=== PATIENT | female | born 1935 | race Caucasian/White ===

== ENCOUNTER → 2017-01-06 | Outpatient (CLI) | payer OTHER | LOC: BHFA 16:15 | PROVIDERS: ATTEND Internal Medicine Interventional Cardiology | DX: Z01.810 Encounter for preprocedural cardiovascular examination (principal); I25.10 Atherosclerotic heart disease of native coronary artery without angina pectoris ==

== ENCOUNTER 2017-03-26 07:15 | Inpatient (IN) | payer OTHER ==
[2017-03-26] MEDS ORDERED: VANCOMYCIN 1 GM VIAL ONE (09:16)
[2017-03-26] MEDS ORDERED: TRANEXAMIC ACID 3,000 MG/50 ML BAG IRR ONE (09:16)
[2017-03-26] MEDS ORDERED: TRANEXAMIC ACID 3,000 MG in NS 50 ML IRR ONE (12:00)
[2017-03-26] MEDS ORDERED: ROPIVACAINE 0.2% 80 MG, EPINEPHrine 0.2 MG, KETOROLAC TROMETHAMINE 30 MG in SYRINGE 0 ML IU ONE (12:00)
--- NOTE | 2017-03-26 12:23 | PDHPUP ---
History & Physical Update H&P update statement: This history and physical update is based on an assessment of the patient which was completed after admission or registration (within 24 hours), but prior to the surgery/procedure. H&P update: H&P reviewed & patient examined, no change in patient's condition since H&P completed
[2017-03-26] MEDS ORDERED: ACETAMINOPHEN 325 MG TAB PO ONE (13:11)
[2017-03-26] MEDS ORDERED: ceFAZolin 2 GM/SWFI 2 GM/20 ML SYR IVP ONE (13:11)
[2017-03-26] MEDS ORDERED: DEXAMETHASONE 4 MG/ML VIAL IVP ONE (13:11)
[2017-03-26] MEDS ORDERED: FAMOTIDINE 20 MG TAB PO ONE (13:11)
[2017-03-26 13:32] LABS: INR 1.07 (0.83-1.16); PROTIME(PATIENT) 14.1 SEC (12.0-15.0)
[2017-03-26] MEDS ORDERED: LR 1,000 ML IV ONE (13:52)
[2017-03-26] MEDS ORDERED: LIDOCAINE 1% 2 ML INJ ID PRN (13:52)
[2017-03-26] MEDS ORDERED: MIDAZOLAM 2 MG/2 ML VIAL ONE (14:38)
--- NOTE | 2017-03-26 14:39 | PDANEPAE ---
ANE History of Present Illness R knee oa ANE Past Medical History - Cardiovascular History Hx Hypertension: Yes Hx Arrhythmias: Yes Hx Chest Pain: No Hx Coronary Artery / Peripheral Vascular Disease: No Hx CHF / Valvular Disease: Yes - Pulmonary History Hx COPD: No Hx Asthma/Reactive Airway Disease: No Hx Recent Upper Respiratory Infection: No Hx Oxygen in Use at Home: No Hx Sleep Apnea: Yes Sleep Apnea Screening Result - Last Documented: Positive - Neurologic History Hx Cerebrovascular Accident: No Hx Seizures: No Hx Dementia: No - Endocrine History Hx Diabetes: Yes Endocrine History Comment: CONTROL BY WEIGHT LOSS AND DIET - Renal History Hx Renal Disorders: No - Liver History Hx Hepatic Disorders: No - Neurological & Psychiatric Hx Hx Neurological and Psychiatric Disorders: Yes Neurological / Psychiatric History Comment: 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 - Cancer History Hx Cancer: No - Congenital Disorder History Hx Congenital Disorders: No - GI History Hx Gastrointestinal Disorders: No - Other Health History Other Health History: BRUISES EASILY - Chronic Pain History Chronic Pain: Yes (R shoulder) - Surgical History Prior Surgeries: NONE ANE Review of Systems Review of Systems: - Exercise capacity METS (RN): 4 METS ANE Patient History - Allergies Allergies/Adverse Reactions: Penicillins Allergy (Intermediate, Verified 03/26/17 14:01) Rash - Home Medications Home Medications: RX: Aspirin [Aspirin 81mg (*)] 81 mg PO DAILY 06/24/11 [Last Taken 03/19/17] RX: C/E/Zn/Cu/OM3/DHA/EPA/LUT/ZEAX [Preservision Areds 2 Softgel] 1 each PO BIDMEAL 06/24/11 [Last Taken 03/19/17] RX: Furosemide [Lasix 40 MG (*)] 40 mg PO BIDMEAL@06/24/11 [Last Taken 09/04 15:00] RX: Hydrocodone/APAP 5/325 [[place] 5/325 (*)] 1 - 2 tab PO Q4PRN PRN 06/24/11 [ Last Taken 03/24/17] RX: Metoprolol Succinate Xr [Toprol Xl 50 mg (*)] 50 mg PO DAILY 06/24/11 [Last Taken 03/26/17 08:00] Acetaminophen [Tylenol 325mg (*)] 325 mg PO DAILY PRN 03/04/17 [Last Taken 03/12] Atorvastatin Calcium [Lipitor 40 mg (*)] 40 mg PO DAILY 03/04/17 [Last Taken 10/05 08:00] Cholecalciferol Vit D3 [Vitamin D3 (*)] 1,000 units PO DAILY@12 03/04/17 [Last Taken 03/19/17] Levothyroxine [Synthroid 25 mcg (*)] 25 mcg PO DAILY06 03/04/17 [Last Taken 10/05 07:00] Potassium Cl [Klor-Con] 10 meq PO BIDMEAL 03/04/17 [Last Taken 03/25/17 18:00] RX: Herbals/Supplements -Info Only 1 ea PO DAILY 03/04/17 [Last Taken 03/19/17] Spironolactone [Aldactone 25 MG (*)] 25 mg PO DAILY 03/04/17 [Last Taken 08:00] Valsartan [Diovan (*)] 80 mg PO DAILY 03/04/17 [Last Taken 03/26/17 08:00] Warfarin Sodium [Coumadin] 7.5 mg PO DAILY16 03/26/17 [Last Taken 03/19/17] - NPO status NPO Status: no food or drink >8 hours NPO Since - Liquids (Date): 03/26/17 NPO Since - Liquids (Time): 09:00 NPO Since - Solids (Date): 03/25/17 NPO Since - Solids (Time): 22:00 - Smoking Hx Smoking Status: Never smoked - Family Anes Hx Family Hx Anesthesia Complications: NONE ANE Labs/Vital Signs - Vital Signs Vital Signs: reviewed preoperatively; see RN documention for details Blood Pressure: 146/81 Heart Rate: 81 Respiratory Rate: 16 O2 Sat (%): 92 Height: 152.4 cm Weight: 72.575 kg ANE Physical Exam - Airway Neck exam: FROM Mallampati Score: Class 2 Mouth exam: normal dental/mouth exam - Pulmonary Pulmonary: no respiratory distress - Cardiovascular Cardiovascular: regular rate and rhythym - ASA Status ASA Status: III ANE Anesthesia Plan Anesthesia Plan: GA w LMA, MAC, spinal Regional Anesthesia: adductor canal FNB
[2017-03-26] MEDS ORDERED: MIDAZOLAM 2 MG/2 ML VIAL IVP ONE (14:40)
[2017-03-26] MEDS ORDERED: PROPOFOL/EMULSION 500 MG/50 ML BOTTLE IV ONE (14:45)
[2017-03-26] MEDS ORDERED: fentaNYL 100 MCG/2 ML INJ ONE ×2 (14:45→15:25)
[2017-03-26] MEDS ORDERED: METOCLOPRAMIDE 10 MG/2 ML VIAL IVP PRN (15:05)
[2017-03-26] MEDS ORDERED: PROMETHAZINE HCL 25 MG/ML INJ IVP PRN ×2 (15:05→15:33)
[2017-03-26] MEDS ORDERED: DIPHENOXYLATE/ATROPINE LOMOTIL 1 TAB PO PRN (15:05)
[2017-03-26] MEDS ORDERED: ONDANSETRON DISINTEGRATING 4 MG TAB PO PRN (15:05)
[2017-03-26] MEDS ORDERED: oxyCODONE IR 5 MG TAB PO PRN (15:05)
[2017-03-26] MEDS ORDERED: PROMETHAZINE HCL 25 MG SUPPR PR PRN (15:05)
[2017-03-26] MEDS ORDERED: MAGNESIUM HYDROXIDE 30 ML UDCUP PO PRN (15:05)
[2017-03-26] MEDS ORDERED: LACTULOSE 20 GM/30 ML UDCUP PO PRN (15:05)
[2017-03-26] MEDS ORDERED: HYDROmorphONE/DILAUDID 2 MG/ML INJ ONE (15:05)
[2017-03-26] MEDS ORDERED: BISACODYL 10 MG SUPP PR PRN (15:05)
[2017-03-26] MEDS ORDERED: POLYETHYLENE GLYCOL 3350 17 GM PKT PO PRN (15:05)
[2017-03-26] MEDS ORDERED: ONDANSETRON 4 MG/2 ML VIAL IVP PRN ×2 (15:05→15:33)
[2017-03-26] MEDS ORDERED: CYCLOBENZAPRINE 10 MG TAB PO PRN (15:05)
[2017-03-26] MEDS ORDERED: TEMAZEPAM 15 MG CAP PO PRN (15:05)
[2017-03-26] MEDS ORDERED: diphenhydrAMINE 25 MG CAP PO PRN (15:05)
[2017-03-26] MEDS ORDERED: LR 1,000 ML IV SCH (15:30)
[2017-03-26] MEDS ORDERED: DEXAMETHASONE 4 MG/ML VIAL ONE (15:31)
[2017-03-26] MEDS ORDERED: ONDANSETRON 4 MG/2 ML VIAL ONE (15:31)
[2017-03-26] MEDS ORDERED: ROPIVACAINE HCL 150 MG/30 ML INJ ONE (15:31)
[2017-03-26] MEDS ORDERED: ROCURONIUM 50 MG/5 ML VIAL ONE (15:31)
[2017-03-26] MEDS ORDERED: MEPERIDINE 25 MG/ML SYR IVP PRN (15:33)
[2017-03-26] MEDS ORDERED: OXYCODONE/APAP 5/325 TAB PO PRN (15:33)
[2017-03-26] MEDS ORDERED: HYDROmorphONE/DILAUDID 1 MG/ML INJ IVP PRN (15:33)
[2017-03-26] MEDS ORDERED: NALOXONE HCL 0.4 MG/ML INJ IVP PRN (15:33)
[2017-03-26] MEDS ORDERED: fentaNYL 100 MCG/2 ML INJ IVP PRN (15:33)
[2017-03-26] MEDS ORDERED: WARFARIN SODIUM 5 MG TAB PO SCH (16:00)
--- NOTE | 2017-03-26 16:48 | POSTOPPROG ---
Post Op Note Date of Operation: 03/26/17 Surgeon: Gabrielle Graves Filling Hauler Weaving: mago graves Anesthesiologist: dr. delgadillo Anesthesia: GET(General Endotracheal) Pre-op Diagnosis: right knee OA Post-op Diagnosis: same Indication: right knee pain due to OA that failed conservative measures Procedure: R TKA Findings: severe knee OA Inf/Abcess present in the surg proc area at time of surgery?: No EBL: 50-100
--- NOTE | 2017-03-26 17:10 | POSTANESTH ---
Post Anesthetic Evaluation Cardiovascular Status: Normal, Stable Respiratory Status: Normal, Stable Level of Consciousness/Mental Status: Can Participate in Eval Pain Control: Adequate, Prn Tx Ordered Nausea/Vomiting Control: Adequate, Prn Tx Ordered Complications Possibly Related to Anesthesia: None Noted
[2017-03-26] MEDS: ACETAMINOPHEN 325 MG TAB PO SCH ×2 (20:41→23:38)
[2017-03-26] MEDS: POTASSIUM CL 10 MEQ TAB PO SCH (20:42)
[2017-03-26] MEDS: FAMOTIDINE 20 MG TAB PO SCH (20:42)
[2017-03-26] MEDS: SENNOSIDES/DOCUSATE SODIUM TAB PO SCH (20:45)
[2017-03-26] MEDS ORDERED: WARFARIN SODIUM 7.5 MG TAB PO SCH (22:30)
[2017-03-26] MEDS: ceFAZolin 2 GM/DEXTROSE 100 ML IV SCH (23:38)
[2017-03-27] MEDS: ACETAMINOPHEN 325 MG TAB PO SCH ×2 (05:12→12:18)
[2017-03-27 05:17] VITALS: TEMP 97.9
[2017-03-27 05:21] LABS: HEMATOCRIT 39.1 % (38.0-47.0); HEMOGLOBIN 13.8 g/dL (12.6-16.3)
[2017-03-27 05:29] LABS: ANION GAP 11 mEq/L (8-16); CALCIUM 9.3 mg/dL (8.5-10.4); CARBON DIOXIDE 22 mEq/l (22-31); CHLORIDE 100 mEq/L (97-110); CREATININE 1.1 mg/dL (0.6-1.0); GLOMERULAR FILTRATION RATE 48; GLUCOSE 152 mg/dL (70-100); POTASSIUM 4.5 mEq/L (3.5-5.2); SODIUM 133 mEq/L (134-144)
[2017-03-27 05:33] LABS: INR 1.09 (0.83-1.16); PROTIME(PATIENT) 14.3 SEC (12.0-15.0)
[2017-03-27] MEDS ORDERED: LEVOTHYROXINE 25 MCG TAB PO SCH (06:00)
[2017-03-27] MEDS: ceFAZolin 2 GM/DEXTROSE 100 ML IV SCH (08:38)
[2017-03-27] MEDS: SENNOSIDES/DOCUSATE SODIUM TAB PO SCH (08:38)
[2017-03-27] MEDS: FUROSEMIDE 40 MG TAB PO SCH ×2 (08:39→12:21)
[2017-03-27] MEDS: FAMOTIDINE 20 MG TAB PO SCH (08:40)
[2017-03-27] MEDS: POTASSIUM CL 10 MEQ TAB PO SCH (08:40)
[2017-03-27 08:45] VITALS: BP 128/66; PULSE 71
[2017-03-27 08:51] VITALS: RESP 18; O2SAT 96
[2017-03-27] MEDS ORDERED: ATORVASTATIN CALCIUM 40 MG TAB PO SCH (09:00)
[2017-03-27] MEDS ORDERED: VALSARTAN 80 MG TAB PO SCH (09:00)
[2017-03-27] MEDS ORDERED: ENOXAPARIN 40 MG/0.4 ML SYR SC SCH (09:00)
[2017-03-27] MEDS ORDERED: METOPROLOL SUCCINATE XR 50 MG TAB PO SCH (09:00)
[2017-03-27] MEDS ORDERED: SPIRONOLACTONE 25 MG TAB PO SCH (09:00)
--- NOTE | 2017-03-27 10:45 | PDIAF ---
- Diagnosis Diagnosis: knee OA Code Status: Full Code - Medication Management Discharge Medications: Medications to Continue on Transfer C/E/Zn/Cu/OM3/DHA/EPA/LUT/ZEAX [Preservision Areds 2 Softgel] 1 each PO BIDMEAL 06/24/11 [Last Taken 03/19/17] Furosemide [Lasix 40 MG (*)] 40 mg PO BIDMEAL@,06/24/11 [Last Taken 15:00] Hydrocodone/APAP 5/325 [[place] 5/325 (*)] 1 - 2 tab PO Q4PRN PRN 06/24/11 [Last Taken 03/24/17] Metoprolol Succinate Xr [Toprol Xl 50 mg (*)] 50 mg PO DAILY 06/24/11 [Last Taken 03/26/17 08:00] Acetaminophen [Tylenol 325mg (*)] 325 mg PO DAILY PRN 03/04/17 [Last Taken 03/12] Atorvastatin Calcium [Lipitor 40 mg (*)] 40 mg PO DAILY 03/04/17 [Last Taken 10/05 08:00] Cholecalciferol Vit D3 [Vitamin D3 (*)] 1,000 units PO DAILY@12 03/04/17 [Last Taken 03/19/17] Herbals/Supplements -Info Only 1 ea PO DAILY 03/04/17 [Last Taken 03/19/17] Levothyroxine [Synthroid 25 mcg (*)] 25 mcg PO DAILY06 03/04/17 [Last Taken 10/05 07:00] Potassium Cl [Klor-Con 10 meq (RX)] 10 meq PO BIDMEAL 03/04/17 [Last Taken 03/25 18:00] Spironolactone [Aldactone 25 MG (*)] 25 mg PO DAILY 03/04/17 [Last Taken 08:00] Valsartan [Diovan (*)] 80 mg PO DAILY 03/04/17 [Last Taken 03/26/17 08:00] Acetaminophen [Tylenol 325mg (*)] 650 mg PO Q6HRS tab 03/26/17 [Last Taken Unknown] Enoxaparin [Lovenox 40 MG (*)] 40 mg SC DAILY syr 03/26/17 [Last Taken Unknown] Sennosides/Docusate Sodium [Senokot-S] 1 - 2 tab PO BID tab 03/26/17 [Last Taken Unknown] Warfarin Sodium [Coumadin 5MG (*)] 5 mg PO DAILY AT 4PM tab 03/26/17 [Last Taken Unknown] Warfarin Sodium [Coumadin 5MG (*)] 7.5 mg PO DAILY16 03/26/17 [Last Taken ] celeCOXIB [Celebrex (*)] 200 mg PO DAILY cap 03/26/17 [Last Taken Unknown] oxyCODONE IR [Oxycodone Ir (*)] 5 - 10 mg PO Q3HRS PRN tab 03/26/17 [Last Taken Unknown] Discharge Medications: Refer to the Discharge Home Medication list for PRN reason. - Orders Diet Recommendation: no restrictions on diet Diet Texture: Regular Texture Diet Abner Stockings Discontinue Date: daytime x 2 weeks Wound Care Instructions: incision dressing is waterproof, ok to shower. remove in two weeks Activity/Weight Bearing Restrictions: WBAT with FWW - Follow Up Care Current Providers and Referrals: Gabrielle Huizar MD [Medical Doctor] - 04/10/17 3:00 pm Janeen Mendieta MD [Primary Care Provider] -
--- NOTE | 2017-03-27 11:14 | ASMTCMCOM ---
CM Note CM Note Notes: Pt medically stable for d/c to [facility]. Orders and non-triggering PASRR sent in [employer]. WC van scheduled for 12:30 w [employer], pt aware of payment. RN to call report. Date Signed: 03/27/2017 11:13 AM Electronically Signed By:ARON Garduno
--- NOTE | 2017-03-27 13:15 | SOAPPROG ---
SOAP Progress Note Assessment/Plan: Assessment: Patricia is doing well POD 1 s/p R TKA 1). pain management: pain well controlled on oral pain meds 2) VTE ppx: resume coumadin recommended 3) anemia: level expected initially postop 4) d/c planning: d/c to SNF today pending release from PT Plan: 03/27/17 13:14 Subjective: patricia is doing well today, denies SOB, chest pain and N/V. Objective: Vital Signs Temp Pulse Resp BP Pulse Ox 36.6 C 71 18 128/66 H 96 03/27/17 05:17 03/27/17 08:41 03/27/17 08:00 03/27/17 08:41 03/27/17 08:00 Laboratory Results 03/27/17 04:37 03/27/17 04:37 03/26/17 03/27/17 03/28/17 05:59 05:59 05:59 Intake Total 1585 250 Output Total 900 Balance 685 250 PT 14.3 SEC (12.0-15.0) 03/27/17 04:37 INR 1.09 (0.83-1.16) 03/27/17 04:37 RLE: incision dressing is clean and dry, NVI, +pf/df ICD10 Worksheet Patient Problems: Problems Problem Status Onset Primary localized osteoarthritis of right knee Acute
--- NOTE | 2017-03-27 14:13 | ASDISCHSUM ---
Discharge Information Plan Status:SNF Medically Cleared to Leave: Discharge Date:03/27/2017 12:48 PM D/C Disposition:Fpc Facility ADT D/C Disposition:Fpc Facility Projected Discharge Date:03/27/2017 11:00 AM Transportation at D/C:Wheelchair Van Discharge Delay Reason: Follow-Up Date:03/27/2017 11:00 AM Discharge Slot: Final Diagnosis: Placement Information Referral Type:*Fpc/SNF Referral ID:[id number] Provider Name:[facility] Address 1:[address] Address 2: City:[place] Selection Factors: State:[place] Patient Contact Information Contact Name:JANNETTE Relationship:Daughter Address: Work Phone: City: [facility] Phone: [facility] Code: Email: Financial Information Financial Class: Primary Plan Desc:MEDICARE INPATIENT Primary Plan Number:[id number] Secondary Plan Desc:[employer] PPO POS HMO SIG ADM Secondary Plan Number:[id number] Assessment Information [facility] CM Progress Note CM Note CM Note Notes: Pt medically stable for d/c to [facility]. Orders and non-triggering PASRR sent in [employer]. WC van scheduled for 12:30 w [employer], pt aware of payment. RN to call report. Date Signed: 03/27/2017 11:13 AM Electronically Signed By:ARON Garduno Intervention Information
--- NOTE | 2017-03-27 18:10 | GOP ---
[f rep st] OPERATIVE REPORT DATE OF OPERATION: 03/26/2017 SURGEON: Marquez Huizar MD ANESTHESIA: Spinal. PREOPERATIVE DIAGNOSIS: Right knee osteoarthritis. POSTOPERATIVE DIAGNOSIS: Right knee osteoarthritis. PROCEDURE PERFORMED: Right total knee arthroplasty. FINDINGS: ESTIMATED BLOOD LOSS: 30 cc. INDICATIONS: This is an 81-year-old female with severe and progressive pain and deformity of the rig ht knee unresponsive to conservative care. Risks and benefits of the surgical intervention were expl ained in detail. DESCRIPTION OF PROCEDURE: The patient was brought to the operative room and placed on the table in t he supine position. Spinal anesthesia was induced without difficulty. A pneumatic tourniquet was ap plied about the right proximal thigh, and the leg was prepped and draped in a sterile fashion. The l eg bolton was applied. After exsanguination by elevation the tourniquet was inflated to 250 mm of me rcury. Incision was made anterior medial from the tibial tuberosity to a point cm proximal to the superior pole of the patella. Medial parapatellar arthrotomy was carried out from the superior pole of the patella and posteriorly in line with the fibers of the Type 2 VMO. The medial collateral lig ament was elevated and the infrapatellar fat pad was resected. The patella was everted and the articular surface was excised. A 32 mm patellar button was placed. T he distal femoral guide hole was drilled and the 60 degree alignment sandy was placed. An 8 mm distal femoral cut was made without difficulty. Attention was turned to the tibia and a standard 9 mm cut based on the lateral tibial condyle was per formed. The tibial articular surface was excised without difficulty. Attention was turned back to the femur and a size 3 Triathlon femoral cutting block was positioned. Anterior, posterior, and chamfer cuts were made, followed by the intercondylar box cut. The knee was extended and the remnants of the medial and lateral meniscus were excised. The posterio r capsule was injected with ropivacaine, epinephrine and Toradol. A size 3 [place] Baseplate tibia l tray was positioned. Trial reduction was then carried out. There was excellent range of motion, a lignment, and stability using the 11 mm polyethylene. All trials were then removed. The joint was thoroughly irrigated and carefully dried. Two packages of cement and 2 grams of vancomycin were mixed in the vacuum mixer and placed on the fixation surface s of all surfaces of the components. The components were implanted and all excess cement was thoroug hly removed. The permanent 11 mm polyethylene was placed without difficulty. The tourniquet was deflated and all bleeders were coagulated. The wound was thoroughly irrigated and closed using interrupted sutures of 2-0 Vicryl for the joint capsule. The subcu was closed with 3-0 Vicryl and the skin with 4-0 Monocryl. Dermabond and Steri-Strips were applied followed by a compre ssive dressing. The patient was then moved from the operating room to the recovery room in good cond ition, having tolerated the procedure well. PATHOLOGY: Severe tricompartmental osteoarthritis. /[id number]/MODL
== END 2017-03-27 12:48 | DRG 470 ==
LOC: F3N 12:11
PROVIDERS: ADMIT Orthopaedic Surgery; ATTEND Orthopaedic Surgery
PROC: 0SRC0J9 Replacement of Right Knee Joint with Synthetic Substitute, Cemented, Open Approach (ICD-10-PCS; principal; 2017-03-26 14:15)
DX: M17.11 Unilateral primary osteoarthritis, right knee (principal)
CPT/HCPCS: 82607-90; 97161-GP; 97165-GO; C1713; G8978-GP-CK; G8979-GP-CJ; G8987-GO-CI; G8988-GO-CI; J0171; J0690; J1100; J1170; J1650; J1885; J2250; J2405; J2704; J2795; J3010; J3370

== ENCOUNTER 2017-07-23 11:10 | Inpatient (IN) | payer OTHER ==
[~2017-07-23 11:10] MED LIST: BUPI/epINEPH/KETOROLAC IU ONE; ROPIVACAINE 0.2% 80 MG, EPINEPHrine 0.2 MG, KETOROLAC TROMETHAMINE 30 MG in SYRINGE 0 ML IU ONE; TRANEXAMIC ACID 3,000 MG in NS (SYRINGE) 50 ML IRR ONE; TRANEXAMIC ACID 3,000 MG/50 ML BAG IRR ONE; VANCOMYCIN 1 GM VIAL ONE
[2017-07-23] MEDS ORDERED: ACETAMINOPHEN 325 MG TAB PO ONE (11:29)
[2017-07-23] MEDS ORDERED: FAMOTIDINE 20 MG TAB PO ONE (11:29)
[2017-07-23] MEDS ORDERED: ceFAZolin 2 GM/SWFI 2 GM/20 ML SYR IVP ONE (11:29)
[2017-07-23] MEDS ORDERED: DEXAMETHASONE 4 MG/ML VIAL IVP ONE (11:29)
[2017-07-23] MEDS ORDERED: LR 1,000 ML IV ONE (11:33)
[2017-07-23] MEDS ORDERED: LIDOCAINE 1% 2 ML INJ ID PRN (11:33)
[2017-07-23 12:37] LABS: INR 1.01 (0.83-1.16); PROTIME(PATIENT) 13.5 SEC (12.0-15.0)
[2017-07-23] MEDS ORDERED: MIDAZOLAM 2 MG/2 ML VIAL IVP ONE (13:02)
[2017-07-23] MEDS ORDERED: LR 500 ML IV PRN (13:03)
[2017-07-23] MEDS ORDERED: ONDANSETRON 4 MG/2 ML VIAL IVP PRN ×2 (13:03→13:46)
[2017-07-23] MEDS ORDERED: fentaNYL 100 MCG/2 ML INJ IVP PRN (13:03)
[2017-07-23] MEDS ORDERED: NALOXONE HCL 0.4 MG/ML INJ IVP PRN (13:03)
[2017-07-23] MEDS ORDERED: HYDROmorphONE/DILAUDID 2 MG/ML INJ IVP PRN (13:03)
[2017-07-23] MEDS ORDERED: ALBUTEROL 3 ML DEYVIAL IH PRN (13:03)
--- NOTE | 2017-07-23 13:03 | PDANEPAE ---
ANE History of Present Illness here for L TKA ANE Past Medical History - Cardiovascular History Hx Hypertension: Yes Hx Arrhythmias: Yes Hx Chest Pain: No Hx Coronary Artery / Peripheral Vascular Disease: No Hx CHF / Valvular Disease: Yes Cardiovascular History Comment: A-FIB - Pulmonary History Hx COPD: No Hx Asthma/Reactive Airway Disease: No Hx Recent Upper Respiratory Infection: No Hx Oxygen in Use at Home: No Hx Sleep Apnea: Yes Sleep Apnea Screening Result - Last Documented: Positive Pulmonary History Comment: ERIN TRIED PREVIOUSLY USING C-PAP. UNSUCCESSFULLY - Neurologic History Hx Cerebrovascular Accident: No Hx Seizures: No Hx Dementia: No - Endocrine History Hx Diabetes: Yes Endocrine History Comment: NIDDM MANAGED BY DIET - Renal History Hx Renal Disorders: No - Liver History Hx Hepatic Disorders: No - Neurological & Psychiatric Hx Hx Neurological and Psychiatric Disorders: Yes Neurological / Psychiatric History Comment: 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 - Cancer History Hx Cancer: No - Congenital Disorder History Hx Congenital Disorders: No - GI History Hx Gastrointestinal Disorders: No - Other Health History Other Health History: BRUISES EASILY - Chronic Pain History Chronic Pain: Yes (R shoulder AND LT KNEE) - Surgical History Prior Surgeries: RT TOTAL KNEE 03/2017. CATARACT ANE Review of Systems Review of systems is: negative Review of Systems: - Exercise capacity Exercise capacity: >=4 METS METS (RN): 4 METS ANE Patient History - Allergies Allergies/Adverse Reactions: Penicillins Allergy (Intermediate, Verified 03/26/17 14:01) Rash - Home Medications Home medications: home medication list seen and reviewed Home Medications: C/E/Zn/Cu/OM3/DHA/EPA/LUT/ZEAX [Preservision Areds 2 Softgel] 1 each PO BIDMEAL 06/24/11 [Last Taken 2 Weeks Ago ~07/09/17] Furosemide [Lasix 40 MG (*)] 40 mg PO BIDMEAL@,06/24/11 [Last Taken 1 Day Ago ~07/22/17] Hydrocodone/APAP 5/325 [[place] 5/325 (*)] 1 - 2 tab PO Q4PRN PRN 06/24/11 [Last Taken 1 Day Ago ~07/22/17] Metoprolol Succinate Xr [Toprol Xl 50 mg (*)] 50 mg PO DAILY06 06/24/11 [Last Taken 07/23/17] Acetaminophen [Tylenol 325mg (*)] 325 mg PO DAILY PRN 03/04/17 [Last Taken 07/19] Atorvastatin Calcium [Lipitor 40 mg (*)] 40 mg PO DAILY06 03/04/17 [Last Taken 07/23/17] Cholecalciferol Vit D3 [Vitamin D3 (*)] 1,000 units PO DAILY@12 03/04/17 [Last Taken 2 Weeks Ago ~07/09/17] Herbals/Supplements -Info Only 1 ea PO DAILY 03/04/17 [Last Taken 2 Weeks Ago ~ 07/09/17] Levothyroxine [Synthroid 25 mcg (*)] 25 mcg PO DAILY06 03/04/17 [Last Taken 08/06] Potassium Cl [Klor-Con 10 meq (RX)] 10 meq PO BIDMEAL 03/04/17 [Last Taken 07/23] Spironolactone [Aldactone 25 MG (*)] 25 mg PO DAILY06 03/04/17 [Last Taken 1 Day Ago ~07/22/17] Valsartan [Diovan (*)] 80 mg PO DAILY06 03/04/17 [Last Taken 1 Day Ago ~07/22/17 ] Warfarin Sodium [Coumadin 5MG (*)] 7.5 mg PO HS 03/26/17 [Last Taken 1 Week Ago ~07/16/17] - NPO status NPO Status: no food or drink >8 hours NPO Since - Liquids (Date): 07/23/17 NPO Since - Liquids (Time): 10:00 NPO Since - Solids (Date): 07/22/17 NPO Since - Solids (Time): 23:59 - Smoking Hx Smoking Status: Never smoked - Family Anes Hx Family Hx Anesthesia Complications: NONE ANE Labs/Vital Signs - Vital Signs Vital Signs: reviewed preoperatively; see RN documention for details Blood Pressure: 131/67 Heart Rate: 74 Respiratory Rate: 18 O2 Sat (%): 96 Height: 152.4 cm Weight: 72.575 kg ANE Physical Exam - Airway Neck exam: FROM Mallampati Score: Class 1 - Pulmonary Pulmonary: no respiratory distress - Cardiovascular Cardiovascular: regular rate and rhythym - ASA Status ASA Status: III ANE Anesthesia Plan Anesthesia Plan: GA w LMA
[2017-07-23] MEDS ORDERED: fentaNYL 100 MCG/2 ML INJ ONE (13:16)
[2017-07-23] MEDS ORDERED: PROPOFOL 200 MG/20 ML VIAL ONE ×2 (13:17→13:55)
[2017-07-23] MEDS ORDERED: BISACODYL 10 MG SUPP PR PRN (13:46)
[2017-07-23] MEDS ORDERED: MAGNESIUM HYDROXIDE 30 ML UDCUP PO PRN (13:46)
[2017-07-23] MEDS ORDERED: DIPHENOXYLATE/ATROPINE LOMOTIL 1 TAB PO PRN (13:46)
[2017-07-23] MEDS ORDERED: diphenhydrAMINE 25 MG CAP PO PRN (13:46)
[2017-07-23] MEDS ORDERED: TEMAZEPAM 15 MG CAP PO PRN (13:46)
[2017-07-23] MEDS ORDERED: CYCLOBENZAPRINE 10 MG TAB PO PRN (13:46)
[2017-07-23] MEDS ORDERED: POLYETHYLENE GLYCOL 3350 17 GM PKT PO PRN (13:46)
[2017-07-23] MEDS ORDERED: ONDANSETRON DISINTEGRATING 4 MG TAB PO PRN (13:46)
[2017-07-23] MEDS ORDERED: PROMETHAZINE HCL 25 MG SUPPR PR PRN (13:46)
[2017-07-23] MEDS ORDERED: LACTULOSE 20 GM/30 ML UDCUP PO PRN (13:46)
[2017-07-23] MEDS ORDERED: METOCLOPRAMIDE 10 MG/2 ML VIAL IVP PRN (13:46)
[2017-07-23] MEDS ORDERED: PROMETHAZINE HCL 25 MG/ML INJ IVP PRN (13:46)
[2017-07-23] MEDS ORDERED: HYDROmorphONE/DILAUDID 2 MG/ML INJ ONE (13:48)
[2017-07-23] MEDS ORDERED: LR 1,000 ML IV SCH (14:00)
[2017-07-23] MEDS ORDERED: ceFAZolin 2 GM/DEXTROSE 100 ML IV SCH (14:00)
--- NOTE | 2017-07-23 14:55 | POSTOPPROG ---
Post Op Note Date of Operation: 07/23/17 Surgeon: Gabrielle Graves Supervisor Taping: mago graves Anesthesiologist: dr avery Anesthesia: GET(General Endotracheal) Pre-op Diagnosis: left knee OA Post-op Diagnosis: christine Indication: left knee pain due to OA that failed conservative measures Procedure: l TKA Findings: severe knee OA Inf/Abcess present in the surg proc area at time of surgery?: No EBL: 50-100
[2017-07-23] MEDS ORDERED: WARFARIN SODIUM 5 MG TAB PO ONE (16:00)
[2017-07-23] MEDS: POTASSIUM CL 10 MEQ TAB PO SCH (17:15)
[2017-07-23] MEDS: ACETAMINOPHEN 325 MG TAB PO SCH (17:16)
--- NOTE | 2017-07-23 18:22 | PDMN ---
Medical Necessity Medical necessity: est los>2mn s/p L TKA, for continued post op care r/t mobility issues prior to surgery, advanced age, comorbid CHF, HTN, AFIB, and functional incontinence; safety concerns w/discharge to home alone; admit for continued PT/OT in hospital, additional care and monitoring post-op; per order and history 07/23/17
[2017-07-23] MEDS: SENNOSIDES/DOCUSATE SODIUM TAB PO SCH (20:49)
[2017-07-23] MEDS: ceFAZolin 2 GM/SWFI 2 GM/20 ML SYR IVP SCH (20:49)
[2017-07-23] MEDS: FAMOTIDINE 20 MG TAB PO SCH (20:49)
[2017-07-24] MEDS: ACETAMINOPHEN 325 MG TAB PO SCH ×4 (00:11→17:26)
[2017-07-24] MEDS: LEVOTHYROXINE 25 MCG TAB PO SCH (05:28)
[2017-07-24] MEDS: SPIRONOLACTONE 25 MG TAB PO SCH (06:06)
[2017-07-24] MEDS: VALSARTAN 80 MG TAB PO SCH (06:06)
[2017-07-24] MEDS: METOPROLOL SUCCINATE XR 50 MG TAB PO SCH (06:06)
[2017-07-24] MEDS: ATORVASTATIN CALCIUM 40 MG TAB PO SCH (06:06)
[2017-07-24] MEDS: ceFAZolin 2 GM/SWFI 2 GM/20 ML SYR IVP SCH (06:07)
[2017-07-24 06:12] LABS: INR 1.1 (0.83-1.16); PROTIME(PATIENT) 14.4 SEC (12.0-15.0)
--- NOTE | 2017-07-24 06:46 | GOP ---
[f rep st] OPERATIVE REPORT DATE OF OPERATION: 07/23/2017 SURGEON: Marquez Huizar MD HOME EXTENSION AGENT: Brigida Huizar P.A.-C. ANESTHESIA: Spinal. PREOPERATIVE DIAGNOSIS: Left knee osteoarthritis. POSTOPERATIVE DIAGNOSIS: Left knee osteoarthritis. PROCEDURE PERFORMED: left Total knee replacement. FINDINGS: ESTIMATED BLOOD LOSS: 30 cc. INDICATIONS: This is an 82-year-old female with severe and progressive pain and deformity of the left knee unresponsive to conservative care. Risks and benefits of the surgical intervention were explained in detail. DESCRIPTION OF PROCEDURE: The patient was brought to the operative room and placed on the table in the supine position. Spinal anesthesia was induced without difficulty. A pneumatic tourniquet was applied about the left proximal thigh, and the leg was prepped and draped in a sterile fashion. The leg bolton was applied. After exsanguination by elevation the tourniquet was inflated to 250 mm of mercury. Incision was made anterior medial from the tibial tuberosity to a point 2 cm proximal to the superior pole of the patella. Medial parapatellar arthrotomy was carried out from the superior pole of the patella and posteriorly in line with the fibers of the Type II VMO. The medial collateral ligament was elevated and the infrapatellar fat pad was resected. Left severe tricompartmental osteoarthritis. The patella was everted and the articular surface was excised. A 29 mm patellar button was placed. The distal femoral guide hole was drilled and the 60 degree alignment sandy was placed. An 8 mm distal femoral cut was made without difficulty. Attention was turned to the tibia and a standard 9 mm cut based on the lateral tibial condyle was performed. The tibial articular surface was excised without difficulty. Attention was turned back to the femur and a size 8 mm distal femoral cutting block was positioned. Anterior, posterior, and chamfer cuts were made, followed by the intercondylar box cut. The knee was extended and the remnants of the medial and lateral meniscus were excised. The posterior capsule was injected with ropivacaine, epinephrine and Toradol. A size 3 universal base plate tibial tray was positioned. Trial reduction was then carried out. There was excellent range of motion, alignment , and stability using the 11 mm polyethylene. All trials were then removed. The joint was thoroughly irrigated and carefully dried. Two packages of cement and 2 grams of vancomycin were mixed in the vacuum mixer and placed on the fixation surfaces of all surfaces of the components. The components were implanted and all excess cement was thoroughly removed. The permanent 11 mm polyethylene was placed without difficulty. The tourniquet was deflated and all bleeders were coagulated. The wound was thoroughly irrigated and closed using interrupted sutures of 2-0 Vicryl for the joint capsule. The subcu was closed with 3-0 Vicryl and the skin with 4-0 Monocryl. Dermabond and Steri-Strips were applied followed by a compressive dressing. The patient was then moved from the operating room to the recovery room in good condition, having tolerated the procedure well. /[id number]/MODL MTDD
[2017-07-24] MEDS: ENOXAPARIN 40 MG/0.4 ML SYR SC SCH (08:08)
[2017-07-24] MEDS: SENNOSIDES/DOCUSATE SODIUM TAB PO SCH ×2 (08:09→20:01)
[2017-07-24] MEDS: FUROSEMIDE 40 MG TAB PO SCH ×2 (08:12→11:59)
[2017-07-24] MEDS: POTASSIUM CL 10 MEQ TAB PO SCH ×2 (08:12→17:26)
[2017-07-24] MEDS: FAMOTIDINE 20 MG TAB PO SCH ×2 (08:12→22:31)
--- NOTE | 2017-07-24 08:49 | SOAPPROG ---
SOAP Progress Note Assessment/Plan: Assessment: Patient is doing well POD 1 s/p L TKA Pain management: pain is well controlled on oral pain meds. VTE ppx: recommend coumadin and lovenox, INR 1.1. patient is on long term care pharmacist coumadin Anemia: level is expected initially postop. Asymptomatic. Continue to monitor D/c planning: d/c to SNF pending release from PT and medically safe for d/c due to comorbidities Plan: 07/24/17 08:45 Subjective: Birgit is doing well today, denies pain, N/v, chest pain Objective: Vital Signs Temp Pulse Resp BP Pulse Ox 36.4 C 62 16 122/81 H 95 07/24/17 07:33 07/24/17 07:33 07/24/17 07:33 07/24/17 07:33 07/24/17 07:33 Laboratory Results 07/24/17 05:29 07/24/17 05:29 07/23/17 07/24/17 07/25/17 05:59 05:59 05:59 Intake Total 2275 Output Total 675 Balance 1600 PT 14.4 SEC (12.0-15.0) 07/24/17 05:29 INR 1.10 (0.83-1.16) 07/24/17 05:29 LLE: incision dressing is clean and dry, NVI, +pf/df ICD10 Worksheet Patient Problems: Problems Problem Status Onset Primary localized osteoarthritis of left knee Acute Primary localized osteoarthritis of right knee Acute chronic disease mgmt/transitional care Acute
--- NOTE | 2017-07-24 14:30 | ASMTCMCOM ---
CM Note CM Note Notes: Pt post op day 1 elective L TKA. PT/OT rec SNF. Pt lives alone and is agreeable to SNF. [facility] choice of [facility] has no bed availability. Pt second choice of [facility] accepts pt and has bed availability. D/c plan of care: [facility] SNF when medically stable. Date Signed: 07/24/2017 02:29 PM Electronically Signed By:ARON Garduno
[2017-07-24] MEDS ORDERED: WARFARIN SODIUM 5 MG TAB PO SCH (16:45)
[2017-07-24] MEDS ORDERED: WARFARIN SODIUM 7.5 MG TAB PO ONE (16:45)
[2017-07-24] MEDS: oxyCODONE IR 5 MG TAB PO PRN (20:00)
[2017-07-25] MEDS: ACETAMINOPHEN 325 MG TAB PO SCH ×5 (00:21→23:32)
[2017-07-25] MEDS: oxyCODONE IR 5 MG TAB PO PRN ×4 (00:22→20:36)
[2017-07-25 05:29] LABS: INR 1.03 (0.83-1.16); PROTIME(PATIENT) 13.7 SEC (12.0-15.0)
[2017-07-25] MEDS: VALSARTAN 80 MG TAB PO SCH (05:51)
[2017-07-25] MEDS: LEVOTHYROXINE 25 MCG TAB PO SCH (05:53)
[2017-07-25] MEDS: ATORVASTATIN CALCIUM 40 MG TAB PO SCH (05:53)
[2017-07-25] MEDS: SPIRONOLACTONE 25 MG TAB PO SCH (05:54)
[2017-07-25] MEDS: METOPROLOL SUCCINATE XR 50 MG TAB PO SCH (05:54)
--- NOTE | 2017-07-25 09:11 | SOAPPROG ---
SOAP Progress Note Assessment/Plan: Assessment: Patient is doing well POD 2 s/p L TKA Pain management: pain is well controlled on oral pain meds. VTE ppx: recommend coumadin and lovenox, INR 1.03 today. Spoke with pharmacist Denia. It does not appear patient received coumadin on Friday evening even though I ordered it. Unsure as to why not. Patient received 7.5mg coumadin yesterday afternoon and 40mg lovenox in the morning . If first dose coumadin was last night, ok to proceed with 7.5mg, which is her home dose. patient is on snf coumadin D/c planning: d/c to SNF pending release from PT and medically safe for d/c due to comorbidities Plan: 07/24/17 08:45 07/25/17 09:05 07/25/17 09:12 Subjective: Birgit is doing well, pain is well controlled. Objective: Vital Signs Temp Pulse Resp BP Pulse Ox 36.4 C 58 L 16 147/76 H 98 07/25/17 07:55 07/25/17 07:55 07/25/17 07:55 07/25/17 07:55 07/25/17 07:55 Laboratory Results 07/25/17 04:46 07/24/17 05:29 07/24/17 07/25/17 07/26/17 05:59 05:59 05:59 Intake Total 2275 840 Output Total 675 1450 Balance 1600 -610 PT 13.7 SEC (12.0-15.0) 07/25/17 04:46 INR 1.03 (0.83-1.16) 07/25/17 04:46 incision dressing is clean and dry, NVI, +p/df ICD10 Worksheet Patient Problems: Problems Problem Status Onset Primary localized osteoarthritis of left knee Acute Primary localized osteoarthritis of right knee Acute chronic disease mgmt/transitional care Acute
[2017-07-25] MEDS: ENOXAPARIN 40 MG/0.4 ML SYR SC SCH (11:11)
[2017-07-25] MEDS: FUROSEMIDE 40 MG TAB PO SCH ×2 (11:12→14:24)
[2017-07-25] MEDS: POTASSIUM CL 10 MEQ TAB PO SCH ×2 (11:12→19:02)
[2017-07-25] MEDS: SENNOSIDES/DOCUSATE SODIUM TAB PO SCH ×2 (11:13→22:17)
[2017-07-25] MEDS: FAMOTIDINE 20 MG TAB PO SCH ×2 (11:13→22:17)
[2017-07-25] MEDS ORDERED: WARFARIN SODIUM 7.5 MG TAB PO SCH (16:00)
[2017-07-26] MEDS: LEVOTHYROXINE 25 MCG TAB PO SCH (05:47)
[2017-07-26 05:58] LABS: INR 1.11 (0.83-1.16); PROTIME(PATIENT) 14.5 SEC (12.0-15.0)
[2017-07-26] MEDS: VALSARTAN 80 MG TAB PO SCH (06:24)
[2017-07-26] MEDS: ACETAMINOPHEN 325 MG TAB PO SCH ×2 (06:24→11:43)
[2017-07-26] MEDS: ATORVASTATIN CALCIUM 40 MG TAB PO SCH (06:25)
[2017-07-26] MEDS: METOPROLOL SUCCINATE XR 50 MG TAB PO SCH (06:25)
[2017-07-26] MEDS: SPIRONOLACTONE 25 MG TAB PO SCH (06:26)
--- NOTE | 2017-07-26 08:27 | PDIAF ---
- Diagnosis Diagnosis: s/p TKA Code Status: Full Code - Medication Management Discharge Medications: Medications to Continue on Transfer C/E/Zn/Cu/OM3/DHA/EPA/LUT/ZEAX [Preservision Areds 2 Softgel] 1 each PO BIDMEAL 06/24/11 [Last Taken 2 Weeks Ago ~07/09/17] Furosemide [Lasix 40 MG (*)] 40 mg PO BIDMEAL@06/24/11 [Last Taken 1 Day Ago ~07/22/17] Metoprolol Succinate Xr [Toprol Xl 50 mg (*)] 50 mg PO DAILY06 06/24/11 [Last Taken 07/23/17] Atorvastatin Calcium [Lipitor 40 mg (*)] 40 mg PO DAILY06 03/04/17 [Last Taken 07/23/17] Cholecalciferol Vit D3 [Vitamin D3 (*)] 1,000 units PO DAILY@12 03/04/17 [Last Taken 2 Weeks Ago ~07/09/17] Herbals/Supplements -Info Only 1 ea PO DAILY 03/04/17 [Last Taken 2 Weeks Ago ~ 07/09/17] Levothyroxine [Synthroid 25 mcg (*)] 25 mcg PO DAILY06 03/04/17 [Last Taken 08/06] Potassium Cl [Klor-Con 10 meq (RX)] 10 meq PO BIDMEAL 03/04/17 [Last Taken 07/23] Spironolactone [Aldactone 25 MG (*)] 25 mg PO DAILY06 03/04/17 [Last Taken 07/22] Valsartan [Diovan (*)] 80 mg PO DAILY06 03/04/17 [Last Taken 07/22/17] Warfarin Sodium [Coumadin 5MG (*)] 7.5 mg PO DAILY@16 03/26/17 [Last Taken 1 Week Ago ~07/16/17] Acetaminophen [Tylenol 325mg (*)] 650 mg PO Q6HRS tab 07/26/17 [Last Taken Unknown] Enoxaparin [Lovenox 40 MG (*)] 40 mg SC DAILY syr 07/26/17 [Last Taken Unknown] Ondansetron Odt [Zofran Odt 4 mg (*)] 4 mg PO Q4HRS PRN tab 07/26/17 [Last Taken Unknown] Polyethylene Glycol 3350 [Miralax 17 gm (*)] 17 gm PO DAILY PRN pkt 07/26/17 [ Last Taken Unknown] Sennosides/Docusate Sodium [Senokot-S] 1 - 2 tab PO BID tab 07/26/17 [Last Taken Unknown] celeCOXIB [Celebrex (*)] 200 mg PO DAILY cap 07/26/17 [Last Taken Unknown] oxyCODONE IR [Oxycodone Ir (*)] 5 - 10 mg PO Q3HRS PRN tab 07/26/17 [Last Taken Unknown] Discharge Medications: Refer to the Discharge Home Medication list for PRN reason. - Orders Services needed: Registered Nurse, Certified Overlay Plastician, Physical Therapy, Occupational Therapy Diet Recommendation: no restrictions on diet Diet Texture: Regular Texture Diet Bryan Stockings Discontinue Date: 2 weeks from surgery Wound Care Instructions: do not remove incision dressing. see additional instructions. if dressing turns black, call Dr. Huizar's office and we will have you come in for eval. Sutures/Ewing Site: n/a Activity/Weight Bearing Restrictions: WBAT with FWW Additional: Joint Protocol-Knee Replacement. Follow up with Dr. Ash office as scheduled. . After surgery instructions: Coumadin daily (helps prevent blood clots). INR on 07/26/17 was 1.1, continue 40mg SC lovenox once daily until INR 1.3 at least. patient is on alf coumadin usually 7.5 mg daily. PT/INR every Friday and morning while taking Coumadin, starting the first Friday after discharge from the hospital. Send INR results to Dr. Huizar's office. Wear thigh high BRYAN hose on both legs during the daytime for 2 weeks (helps to prevent blood clots and decrease swelling in the surgical leg). It is recommended too remove BRYAN hose at night time to give your legs a break. It is common for swelling and bruising to occur in the entire surgical leg even extending to the foot, if concerned call Dr. Canseco office . Elevate the surgical leg with the ankle above the hip several times a day. ~Ideally anytime you are resting throughout the day. Attempt to keep the knee straight while elevating by placing pillows under the ankle instead of the knee to elevate. This may be painful, so please do as much as tolerated. ~This will help you achieve full knee extension. Use a walker for 7-14 days. recommend physical therapy daily. Wear an mike wrap on the knee for 3-4 days after surgery, then it is no longer needed. Do exercises in the book 2-3 times a day. Ice at least 3-5 times a day for 30 minutes each time, if not more often. ~~We also recommend using the ice machine before falling asleep to help with pain. If you have further questions that are not addressed here, please look at the information packet handed to you at the preop appointment. ~Most will be answered on the FAQs, after surgery instructions and incision care pages. You may also call Dr. Ash office with questions as well. *IF YOU HAVE A LIFE THREATENING EMERGENCY, CALL 911. FOR NON-LIFE THREATENING ISSUES , PLEASE CALL DR. ASH OFFICE FIRST. A PHYSICIAN IS GUITAR TEACHER 11/11. Incision/Dressing Care: May shower tomorrow, the incision dressing is waterproof so you may shower without covering it. Do not submerge in water, but letting water run down it in a shower should be ok. Keep the incision (mata ) dressing clean and dry. If the incision dressing gets soiled or wet underneath , change dressing to the dressing given to you by the hospital. (mata dressing will turn black if drainage occurs). Remove incision dressing (mata one) two weeks after surgery. ~Leave steri strips alone. ~They will fall off on their own. Do not have anyone else remove the incision dressing prior to the stated recommendation (2 weeks after surgery). ~If there are incision concerns, contact Dr. Canseco office. ~(Brigida or Dr. Huizar may remove earlier if concerns arise). If incision site (mata dressing) has, call Dr. Canseco office, . ~Brigida and Dr. Huizar may ask you to come into the office for further evaluation. - Labs/Radiology PT/INR Date: 07/28/17 (twice a week then frequency she used prior to surgery) - Follow Up Care Current Providers and Referrals: Janeen Mendieta MD [Primary Care Provider] - Brigida Huizar PA [Physician Hvac R Tech] - 08/11/17 11:45 am
[2017-07-26] MEDS: ENOXAPARIN 40 MG/0.4 ML SYR SC SCH (08:28)
[2017-07-26] MEDS: POTASSIUM CL 10 MEQ TAB PO SCH (08:29)
[2017-07-26] MEDS: FUROSEMIDE 40 MG TAB PO SCH ×2 (08:29→11:43)
[2017-07-26] MEDS: FAMOTIDINE 20 MG TAB PO SCH ×2 (08:29→08:30)
[2017-07-26] MEDS: SENNOSIDES/DOCUSATE SODIUM TAB PO SCH (08:53)
[2017-07-26 09:23] VITALS: BP 137/99
[2017-07-26] MEDS: oxyCODONE IR 5 MG TAB PO PRN (11:45)
--- NOTE | 2017-07-26 13:18 | SOAPPROG ---
SOAP Progress Note Assessment/Plan: Assessment: Patient is doing well POD 3 s/p L TKA Pain management: pain is well controlled on oral pain meds. VTE ppx: recommend coumadin and lovenox, INR 1.1 today. Recommend increasing coumadin dose from 7.5 to 10mg. D/c planning: d/c to SNF today Plan: 07/24/17 08:45 07/25/17 09:05 07/25/17 09:12 07/26/17 13:17 Subjective: patient is doing well. mod pain, controlled by oral pain meds Objective: Vital Signs Temp Pulse Resp BP Pulse Ox 36.7 C 76 16 137/99 H 95 07/26/17 08:21 07/26/17 08:21 07/26/17 08:21 07/26/17 08:21 07/26/17 08:21 Laboratory Results 07/25/17 04:46 07/24/17 05:29 07/25/17 07/26/17 07/27/17 05:59 05:59 05:59 Intake Total 840 800 Output Total 1450 500 Balance -610 300 PT 14.5 SEC (12.0-15.0) 07/26/17 05:45 INR 1.11 (0.83-1.16) 07/26/17 05:45 incision dressing is clean, bruising medial to incision dressing ICD10 Worksheet Patient Problems: Problems Problem Status Onset Primary localized osteoarthritis of left knee Acute Primary localized osteoarthritis of right knee Acute chronic disease mgmt/transitional care Acute
[2017-07-26] MEDS ORDERED: WARFARIN SODIUM 5 MG TAB PO ONE (14:00)
--- NOTE | 2017-07-26 14:51 | ASMTCMCOM ---
CM Note CM Note Notes: Pt will dc to [facility] today, confirmed that still no beds available at [facility], pt ok w/[facility]. Informed pt that there is current flu precautions at and she was ok with this. Also informed ANTONI mercedes of this. Date Signed: 07/26/2017 02:51 PM Electronically Signed By:Marah Dobson RN
--- NOTE | 2017-08-12 18:41 | GDS ---
[f rep st] DISCHARGE SUMMARY ADMISSION DIAGNOSIS: Left knee osteoarthritis. DISCHARGE DIAGNOSIS: Left knee osteoarthritis. PROCEDURE: Left total knee arthroplasty, robot assisted. VTE PROPHYLAXIS: Recommend Coumadin intermediate. BRIEF DESCRIPTION OF HOSPITAL STAY: Patient was admitted for an elective joint arthroplasty. The patient tolerated the procedure well and has passed physical therapy. The patient was given appropriate antibiotic prophylaxis and venous thromboembolism prophylaxis. The patient's pain was well controlled on oral pain medication, patient was holding down food, and had urinated. Decision was made to discharge the patient to SNF. The patient was given post-operative prescriptions pre-operatively. PLAN: To follow up as scheduled at Dr. Huizar office in 3 weeks. /[id number]/MODL MTDD
== END 2017-07-26 15:36 | DRG 470 ==
LOC: F3N 11:10 → OBSVTOIN 13:46 → F3N 15:50
PROVIDERS: ADMIT Orthopaedic Surgery; ATTEND Orthopaedic Surgery
PROC: 0SRD0J9 Replacement of Left Knee Joint with Synthetic Substitute, Cemented, Open Approach (ICD-10-PCS; principal; 2017-07-23 13:15)
DX: M17.12 Unilateral primary osteoarthritis, left knee (principal); I10 Essential (primary) hypertension; I48.91 Unspecified atrial fibrillation; G47.33 Obstructive sleep apnea (adult) (pediatric); E11.9 Type 2 diabetes mellitus without complications
CPT/HCPCS: 97110-GP; 97116-GP; 97162-GP; 97165-GO; 97535-GO; C1713; G8978-GP-CJ; G8979-GP-CI; G8987-GO-CK; G8988-GO-CH; J0171; J0690; J1100; J1170; J1650; J1885; J2704; J3010; J3370

== ENCOUNTER → 2018-06-17 | Outpatient (CLI) | payer OTHER | LOC: FIMAGING 12:35 | PROVIDERS: ATTEND Internal Medicine | DX: Z12.31 Encounter for screening mammogram for malignant neoplasm of breast (principal) ==

== ENCOUNTER → 2018-08-11 | Outpatient (CLI) | payer OTHER | LOC: BHFA 14:45 | PROVIDERS: ATTEND Internal Medicine Cardiovascular Disease | DX: I48.91 Unspecified atrial fibrillation (principal) ==